=== PATIENT | male | born 2000 | race Caucasian/White ===

== ENCOUNTER 2020-03-21 15:33 | Emergency (ER) | payer OTHER ==
[2020-03-22 14:54] LABS: SARS-CoV-2 MS2 Positive; SARS-CoV-2 N Gene Negative; SARS-CoV-2 S Gene Negative; SARS-CoV-2 orf1ab Negative
== END 2020-03-21 16:20 | disposition home or self-care (01) ==
LOC: ERS 15:33
DX: Z20.828 Contact with and (suspected) exposure to other viral communicable diseases (principal); F17.220 Nicotine dependence, chewing tobacco, uncomplicated
CPT/HCPCS: 87635; 99283; U0003